=== PATIENT | female | born 2005 | race Caucasian/White ===

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

== ENCOUNTER 2024-11-16 10:22 | Outpatient (CLI) | payer OTHER, SELFPAY ==
--- NOTE | 2024-11-16 10:26 | US_ITS ---
PROCEDURE: US TRANSVAGINAL CLINICAL INDICATION: iud placement COMPARISON: No exams were available for comparison FINDINGS: Transvaginal sonographic images of the pelvis were obtained. UTERUS: 8.3cm x 6.4cmx 3.4cm anteverted with a combined endometrial thickness of 3.5mm. There is an IUD which appears to be in the correct position within the uterine cavity. LEFT OVARY: 3.5cmx2.8 cmx2.5cm with a volume of 12.6ml. There are multiple small follicles. RIGHT OVARY: 3.1cmx 2.1cmx2.2cm with a volume of 7.3ml. There are multiple small follicles. Both ovaries are seen and appear normal. Doppler flow to both ovaries are seen. There is trace fluid in the cul-de-sac. IMPRESSION: 1. Anteverted uterus normal in shape and size. The endometrium is thin. 2. There is an IUD within the uterine cavity in the correct position. 3. Both ovaries are seen and appear normal. They have multiple small follicles. 4. There is trace fluid in the cul-de-sac Dictated by: Joshua Salazar MD 11/16/2024 11:29 Joshua Salazar MD in [facility] 11/16/2024 11:29
== END 2024-11-16 23:59 | disposition home or self-care (01) ==
LOC: RAD 10:22
PROVIDERS: PCP Specialist; Visit Provider Obstetrics & Gynecology
DX: Z30.430 Encounter for insertion of intrauterine contraceptive device (principal)
CPT/HCPCS: 76830

== ENCOUNTER 2025-08-16 14:10 | Outpatient (CLI) | payer OTHER, SELFPAY ==
--- OUTSIDE RECORDS SUMMARY | 2025-08-18 08:53 | XMS_ITS | Data Portability ---
Author Organization [facility] Address [address] [place] [id number] Assessment No assessment recorded. Plan of Treatment Reminders Order Date Submit Date Provider Last Modified By Organization Details Last Modified Time Details Appointments None recorded. Lab pharmacoge nomic panel, blood or tissue 2023 024 [id number] [facility] [address] [place] [address], [id number], 5 16:29:14 pharmacoge nomic panel, blood or tissue 2023 024 [id number] [facility] [address] [place] [address], [id number], 5 16:29:14 Referral None recorded. Procedures None recorded. Surgeries None recorded. Imaging None recorded. Medication Orders escitalopr am 10 mg tablet 2024 025 HERMILO Jorge, [address] [place] [address] [place], [id number], 5 15:39:48 escitalopr am 10 mg tablet 2024 025 HERMILO Jorge, [address] [place] [address] [place], [id number], 5 16:16:12 prednisone 20 mg tablet 2023 025 [facility] [address] [place] [address] [place], [place], [id number], 5 14:31:19 Augmentin 875 mg-125 mg tablet 2023 025 ATHENAFAX [facility], [address] [place] [address] [place], [id number], 5 14:25:21 propranolo l 10 mg tablet 2023 025 [facility], [address] [place] [address] [place], [place], [id number], 5 09:29:01 escitalopr am 5 mg tablet 2023 025 [facility], [address] [place] [address] [place], [id number], 5 19:41:30 Augmentin 875 mg-125 mg tablet 2023 024 [email or web address] [facility], [address] [place] [address] [place], [id number], 14:21:24 Patient TargetsNo targets recorded. Patient Instructions Encounter Date Encounter Id Patient Instructions Last Modified By Organization Details Last Modified Time 09/01/2024 [id number] learning about healthy weight Not available 09/01/2024 13:14:46 body mass index: care instructions Not available 09/01/2024 13:14:46 10/21/2024 [id number] Take medication as prescribed. Will treat appropriately after lab work and/or other test results obtained. Contact the office if symptoms persist/worsen or other concerns arise. Follow up in one month to discuss medication effectiveness or sooner if needed. [id number] Not available 10/21/2024 20:25:02 Patient identifi ed triggers for anxiety and impact of anxious thinking on functioning. Discussed strategies to regulate symptoms and need for compliance with treatment. [id number] Not available 10/21/2024 20:25:07 11/22/2024 [id number] Take medication as prescribed. Contact the office if symptoms persist/worsen or other concerns arise. Follow up in 3 months or sooner if needed. [id number] Not available 11/22/2024 19:32:41 Patient identifi ed triggers for anxiety and impact of anxious thinking on functioning. Discussed strategies to regulate symptoms and need for compliance with treatment. [id number] Not available 11/22/2024 19:32:26 03/16/2025 [id number] learning about healthy weight [id number] Not available 03/16/2025 09:06:57 body mass index: care instructions [email or web address] Not available 03/16/2025 09:06:57 Take medication as prescribed. Contact the office if symptoms persist/worsen or other concerns arise. Follow up at next wellness exam or sooner if needed. [id number] Not available 03/16/2025 23:18:55 Patient identifi ed triggers for anxiety and impact of anxious thinking on functioning. Discussed strategies to regulate symptoms and need for compliance with treatment. [id number] Not available 03/16/2025 23:18:46 Reason for Referral None Reported. Problems Name Problem SNOMED Code Status Onset Date Resolution Date Notes Provider Name and Address Organization Details Recorded Time Body mass index 25-29 - overweig [id number] Completed BMI: 27.9 starting wgt: 178 recommen ded wgt gain: 15-25 Wei Cooley RN [address], [address] , [facility] 3 10:43:07 Contrace ption care manageme nt Completed ocp Wei Cooley RN [address], [address] , [facility] 3 10:43:07 Antenata l screenin g Completed [x]Mat21 -4/ NEGATIVE ; Male [-]AFP-d eclined 04/11 [-]CF-de clined 04/11 Wei Cooley RN [address], [address] , [facility] 3 10:43:07 Active immuniza tion Completed [x]Covid -complet ed [ ]Tdap-de sires [x]Flu-d eclined Wei Cooley RN [address], [place], [address] , [place] - [facility] 3 10:43:07 Blood group O Rh(D) negative 082034805 Completed [first TM bleed 01/14 without Rhogam) (Neg AB screen 01/28) [ ]AB screen 28wks [ ]Rhogam 28wks Wei Cooley RN [address], [place], [address] , [place] - [facility] 3 10:43:07 Recreati onal drug user 996607438 Completed UDS+ THC at obhx [ ] Rpt 28wk Wei Cooley RN [address], [place], [address] , [place] - [facility] 3 10:43:07 First trimeste r bleeding [id number] 85209 Completed 3 1 3 ER visit hCG 5400., Single bleeding episode, 01/14 office visit follow-u p, bleeding had stopped, 5 wk IUP US: did NOT has type RH check NOR RHOGAM for this episode. (confirm ed per [facility] Blood bank) Antibody screen 3 2 8 negative (probabl y did not get RhoGAM) [ [ x] We will have Vish check with blood bank regardin g document ation or RhoGAM.s- -NOT GIVEN [ } Need to confirm negative antibody screen at 28 weeks and educate patient regardin g need for RhoGAM with any future bleeding Wei Cooley RN [address], [place], [address] , [place] - [facility] 3 10:43:07 Environm ental allergy 974530305 Active 2020 Shanell Eddy APRN [address], [place], [address] , [place] - [facility] 3 13:26:21 Childhoo d obesity 534340347 Completed 202001/28/2023 Shanell Eddy APRN [address], [place], [address] , [place] - [facility] 3 13:26:05 Dysmenor candelaria 316882271 Completed 202009/01/2024 Wei Cooley RN [address], [place], [address] , [place] [facility] 4 09:31:37 Abnormal uterine bleeding 77847797223 100 Completed 202001/28/2023 Shanell Eddy APRN [address], [place], [address] , [place] [facility] 3 13:25:55 Constipa tion 94267696 Completed 202009/01/2024 Wei Cooley RN [address], [place], [address] , [place] [facility] 4 09:31:30 Anxiety 97614339 Active 2020 Shanell Eddy APRN [address], [place], [address] , [place] [facility] 3 13:26:01 Irritabl e bowel syndrome characte rized by constipa tion 825055017 Active 2020 Shanell Eddy APRN [address], [place], [address] , [place] [facility] 3 13:26:33 Gastroes ophageal reflux disease without esophagi tis 233916894 Active 2020 Shanell Eddy APRN [address], [place], [address] , [place] [facility] 3 13:26:27 Asthma 439568481 Active 2020 Shanell Eddy APRN [address], [place], [address] , [place] [facility] 3 13:25:59 Pregnanc y 09818634 Completed 202207/04/2023 Wei Cooley RN [address], [place], [address] , [place] [facility] 3 10:43:11 History of recreati onal drug use 476791571 Completed 2022 quit w/+ home upt Wei Cooley RN [address], [place], [address] , [place] [facility] 3 10:43:07 History of recreati onal drug use 778209881 Active 2022 quit w/+ home upt Wei Cooley RN [address], [place], [address] , [place] [facility] 4 09:31:22 External hemorrho ids without complica tion 40652924 Completed 202209/01/2024 Wei Cooley RN [address], [place], [address] , [place] [facility] 4 09:31:16 Obesity 303199378 Active 2023 Wei Cooley RN [address], [place], [address] , [place] [facility] 4 09:31:09 Major depressi ve disorder 175540912 Active 2023 Romina Saez APRN [address], [place], [address] , [place] - [facility] 4 20:24:39 Generali zed anxiety disorder 33876303 Active 2023 Romina Saez APRN [address], [place], [address] , [place] [facility] 4 20:24:40 Problem Notes None recorded. Procedures Surgical History Date Name Laterality Status Provider Name and Address Organization Details Recorded Time 07/30/20 24 Suture/Staple removal completed Romina Saez APRN [address], [place], [address], [place] - [facility] 07/30/2024 15:22:34 07/30/20 24 Medication Reconcilliation completed Natasha Frost [place] - [facility] 07/30/2024 10:38:19 06/10/20 23 OB Ultrasound Summary completed Bereket Robert [place] - [facility] 06/10/2023 10:07:48 04/11/20 23 OB Ultrasound Summary completed Bereket Robert [place] [facility] 04/11/2023 11:40:07 01/29/20 23 OB Ultrasound Summary completed Melly Saez [place] [facility] 01/28/2023 12:42:46 01/15/20 23 OB Ultrasound Summary completed Melly Saez [place] [facility] 01/14/2023 13:55:28 10/23/20 22 Nexplanon Insertion cancelled Lea Ralph [place] [facility] 10/15/2022 15:02:00 09/23/20 22 surgical removal of third molar tooth completed Lea Ralph [place] [facility] 10/10/2022 15:30:50 Remove tonsils and adenoids completed Maryjane Audrey [place] - [facility] 12/26/2021 15:46:50 Imaging Results None recorded. Procedure Notes None recorded. Medical Equipment None Reported. Allergies No known drug allergies Medications Name Sig Start Date Stop Date Status Note LastModified by Organization Details LastModified Time amoxicillin 500 mg capsule TAKE ONE CAPSULE BY MOUTH THREE TIMES DAILY FOR 5 DAYS 10/10 completed Not Available Not Available Not Available albuterol sulfate 2.5 mg/3 mL (0.083 %) solution for nebulizatio n Inhale 3 mL every 4-6 hours by nebulizat ion route as needed. 12/26 completed Not Available Not Available Not Available polyethylen e glycol 3350 17 gram oral powder packet take ONE PACKET DIRECTED TWICE DAILY 04/11 completed Not Available Not Available Not Available cetirizine 10 mg tablet 12/26 completed Not Available Not Available Not Available azithromyci n 250 mg tablet TAKE 2 TABLETS BY MOUTH ON DAY 1, THEN TAKE 1 TABLET DAILY ON DAYS 2-5 09/01 completed Not Available Not Available Not Available ibuprofen 800 mg tablet TAKE ONE TABLET BY MOUTH EVERY 8 HOURS NEEDED FOR PAIN --TAKE WITH FOOD-- 11/19 completed Not Available Not Available Not Available fluconazole 150 mg tablet TAKE ONE TABLET BY MOUTH ONCE FOR one DOSE 11/19 completed Not Available Not Available Not Available hydrocodone 5 mg-acetamin ophen 325 mg tablet TAKE ONE TABLET BY MOUTH EVERY 6 HOURS NEEDED FOR PAIN 09/01 completed Not Available Not Available Not Available ondansetron HCl 4 mg tablet TAKE ONE TABLET BY MOUTH EVERY 6 HOURS NEEDED FOR FOR NAUSEA AND VOMITING 04/11 completed Not Available Not Available Not Available prednisone 20 mg tablet Take 2 tablets twice a day by oral route as directed for 5 days. 11/22 completed Not Available Not Available Not Available sumatriptan 50 mg tablet take 1 PO at the start of headache and then may repeat in one hour if still with headache. No more than 2 pills in 24 hours 01/23 completed Not Available Not Available Not Available metronidazo le 500 mg tablet tAKE FOUR TABLETS BY MOUTH ONCE 11/19 completed Not Available Not Available Not Available sulfamethox azole 800 mg-trimetho prim 160 mg tablet TAKE ONE TABLET BY MOUTH EVERY TWELVE HOURS FOR 10 DAYS 03/16 completed Not Available Not Available Not Available triamcinolo ne acetonide 0.1 % topical cream APPLY A THIN LAYER TO THE AFFECTED AREA(S) BY TOPICAL ROUTE 2 TIMES PER DAY 10/09 completed Not Available Not Available Not Available amoxicillin 500 mg tablet Take ONE tablet by MOUTH every EIGHT hours FOR 10 DAYS 12/26 completed Not Available Not Available Not Available Miconazole- 7 2 % vaginal cream INSERT ONE APPLICATO RFUL EVERY DAY VAGINALLY 05/12 completed Not Available Not Available Not Available oxycodone-a cetaminophe n 5 mg-325 mg tablet TAKE ONE TABLET BY MOUTH EVERY 6 HOURS NEEDED 10/10 completed Not Available Not Available Not Available propranolol 10 mg tablet Take 1 tablet twice a day by oral route as needed for 30 days. 03/16 completed Not Available Not Available Not Available amitriptyli ne 25 mg tablet take 1/2 tablet BY MOUTH EVERY DAY 07/12 completed Not Available Not Available Not Available hydrocortis one 1 % topical cream APPLY A THIN LAYER TO THE AFFECTED AREA(S) BY TOPICAL ROUTE 2 TIMES PER DAY 03/21 completed Not Available Not Available Not Available cephalexin 500 mg capsule TAKE ONE CAPSULE BY MOUTH EVERY 8 HOURS FOR 3 DAYS 09/01 completed Not Available Not Available Not Available clotrimazol e-betametha sone 1 %-0.05 % topical cream APPLY TO THE AFFECTED AREA(S) TWICE DAILY in THE morning AND evening FOR TWO WEEKS 11/19 completed Not Available Not Available Not Available docusate sodium 100 mg capsule TAKE ONE CAPSULE BY MOUTH EVERY DAY 10/09 completed Not Available Not Available Not Available omeprazole 20 mg capsule,del ayed release TAKE ONE CAPSULE BY MOUTH EVERY DAY 05/17 completed Not Available Not Available Not Available montelukast 10 mg tablet Take 1 tablet by mouth each evening 05/17 completed Not Available Not Available Not Available methylpredn isolone 4 mg tablets in a dose pack take as directed ON package 10/10 completed Not Available Not Available Not Available albuterol sulfate HFA 90 mcg/actuati on aerosol inhaler INHALE BY MOUTH FOUR TIMES DAILY NEEDED FOR SHORTNESS OF BREATHE OR WHEEZING 11/19 completed Not Available Not Available Not Available fluticasone propionate 50 mcg/actuati on nasal spray,suspe nsion 12/26 completed Not Available Not Available Not Available amoxicillin 875 mg-potassiu m clavulanate 125 mg tablet Take 1 tablet every 12 hours by oral route as directed for 10 days. 11/22 completed Not Available Not Available Not Available escitalopra m 10 mg tablet Take 1 tablet every day by oral route as directed for 30 days. 2024 active Not Available Not Available Not Avai lable escitalopra m 5 mg tablet Take 1 tablet every day by oral route as directed for 30 days. 11/22 completed Not Available Not Available Not Available nitrofurant oin monohydrate /macrocryst als 100 mg capsule TAKE ONE CAPSULE BY MOUTH TWICE DAILY with food FOR SEVEN DAYS 11/19 completed Not Available Not Available Not Available duloxetine 30 mg capsule,del ayed release TAKE ONE CAPSULE BY MOUTH EVERY DAY 05/17 completed Not Available Not Available Not Available Flovent HFA 110 mcg/actuati on aerosol inhaler INhale TWO puffs TWICE DAILY. USE regularly , RINSE MOUTH AFTER each USE. 12/26 completed Not Available Not Available Not Available Lo Loestrin Fe 06/08 completed Not Available Not Available Not Available Nexplanon 68 mg subdermal implant Inject 1 implant by subcutane ous route. 01/14 completed Not Available Not Available Not Available 28 mg iron-800 mcg tablet TAKE ONE TABLET BY MOUTH EVERY DAY 11/19 completed Not Available Not Available Not Available Larissia 0.1 mg-20 mcg tablet TAKE ONE TABLET BY MOUTH EVERY DAY 10/10 completed Not Available Not Available Not Available Qvar RediHaler 80 mcg/actuati on HFA breath activated aerosol 07/12 completed Not Available Not Available Not Available Flucelvax Quad (PF) 60 mcg (15 mcg x 4)/0.5 mL IM syringe inject 0.5 millilite rs intramusc ularly 07/18 completed Not Available Not Available Not Available Afluria Qd (36 mos up)(PF)60 mcg (15 mcg x4)/0.5 mL IM syringe ADM 0.5ML IM UTD 07/12 completed Not Available Not Available Not Available Paxlovid 300 mg (150 mg x 2)-100 mg tablets in a dose pack TAKE DIRECTED ON package 11/19 completed Not Available Not Available Not Available Vitals Date Recorded Body height Body mass index (BMI) Body mass index (BMI) [Percentile] Per age and sex Body weight Body temperature Heart rate Oxygen saturation Oxygen saturation in Arterial blood by Pulse oximetry Respiratory rate Provider Name and Address Organization Details Last Updated DateTime 5 170.18 cm 34.8 kg/m2 97 % 833022. 61 g 98 [degF] 86 /min 99 % 99 % 18 /min Romina Barrios [place] - [facility] 5 14:21:13 Date Recorded Body height Body mass index (BMI) [Percentile] Per age and sex Body mass index (BMI) Body weight Body temperature Heart rate Respiratory rate Provider Name and Address Organization Details Last Updated DateTime 5 170.18 cm 96 % 33.9 kg/m2 76593.3 5 g 97 [degF] 76 /min 18 /min Alexia Paul [place] - [facility] 5 08:52:14 Date Recorded Body height Body mass index (BMI) [Percentile] Per age and sex Body mass index (BMI) Body weight Provider Name and Address Organization Details Last Updated DateTime 09/01/2024 170.18 cm 96 % 34.3 kg/m2 11414.65 g Maryjane Lowe [place] [facility] 09/01/2024 13:11:20 Date Recorded Body height Body mass index (BMI) [Percentile] Per age and sex Body mass index (BMI) Body weight Body temperature Oxygen saturation Oxygen saturation in Arterial blood by Pulse oximetry Provider Name and Address Organization Details Last Updated DateTime 4 170.18 cm 96 % 34 kg/m2 21902.6 4 g 98 [degF] 99 % 99 % Romina Barrios [place] - [facility] 4 13:54:42 Date Recorded Body height Body mass index (BMI) Body mass index (BMI) [Percentile] Per age and sex Body weight Pain severity [place]-Goddard FACES pain rating scale Body temperature Heart rate Respiratory rate Oxygen saturation Oxygen saturation in Arterial blood by Pulse oximetry Provider Name and Address Organization Details Last Updated DateTime 4 170.18 cm 34.1 kg/m2 96 % 39181.1 4 g 1 98.7 [degF] 98 /min 18 /min 98 % 98 % Conrad Marrero [place] - [facility] 4 15:02:11 Social History Question Answer Notes LastModified by Organizat ion Details LastModified Time Tobacco Smoking Status Never Smoker Conrad medrano [place] - [facility] 07/06/2020 18:19:42 Do You Have An Advance Directive? No Information n ot available 01/28/2023 Do You Wear A Helmet When Biking? No Information not available 05/31/2022 Are You Blind Or Do You Have Difficulty Seeing? No Information n ot available 01/28/2023 Is Blood Transfusion Acceptable In An Emergency? Yes Information not available 01/28/2023 What Is Your Level Of Caffeine Consumption? Moderate Information not available 05/31/2022 In The 14 Days Before Symptom Onset, Have You Had Close Contact With A Laboratory-confirm ed COVID-19 While That Case Was Ill? No Information n ot available 01/28/2023 In The 14 Days Before Symptom Onset, Have You Had Close Contact With A Person Who Is Under Investigation For COVID-19 While That Person Was Ill? No Information not available 05/31/2022 Have You Been To An Area Known To Be High Risk For COVID-19? No Information not available 05/31/2022 Are You Deaf Or Do You Have Serious Difficulty Hearing? No Information not available 01/28/2023 What Type Of Diet Are You Following? REGULAR Information n ot available 05/31/2022 Have You Processed Blood Or Body Fluids From An Ebola Virus Disease Patient Without Appropriate PPE? No Information not available 05/31/2022 Do You Reside In Or Have You Traveled To An Area Where Ebola Virus Transmission Is Active? No Information not available 05/31/2022 What Is The Highest Grade Or Level Of School You Have Completed Or The Highest Degree You Have Received? [id number] Information not available 05/31/2022 Have There Been Any Changes To Your Family Or Social Situation? No Information no t available 12/26/2021 Have You Recently Or Are You Planning To Travel To An Area With Zika Virus? No Information not available 05/31/2022 What Is Your Home Situation? Both Parents Information not available 05/31/2022 Do You Have A Medical Power Of Cigar Making Supervisor? No Information not available 01/28/2023 What Was The Date Of Your Most Recent Tobacco Screening? 03/16/2025 [email or web address] Information not available 03/16/2025 How Many Children Do You Have? 0 Information not available 12/26/2021 What Is Your Parents' Marital Status? [email or web address] Information not available 07/06/2020 Do You Use Protection During Sex? No Information not available 05/31/2022 Do You Use Protection Against STDs? No Information not available 05/31/2022 What Is Your Relationship Status? Domestic Partner Information not available 01/28/2023 What Is The Name Of Your School? [employer] Information not available 05/31/2022 Do You Use Your Seat Belt Or Car Seat Routinely? Yes [email or web address] Information not available 07/06/2020 Are You Sexually Active? No Information not available 05/31/2022 Do You Have Any Siblings? 1 Information not available 05/31/2022 Do You Have Smoke And Carbon Monoxide Detectors In Your Home? Yes Information not available 07/06/2020 Are You Passively Exposed To Smoke? No [email or web address] Information no t available 07/06/2020 Has Tobacco Cessation Counseling Been Provided? No Information not available 10/10/2022 Do You Have Difficulty Walking Or Climbing Stairs? No Information not available 01/28/2023 Are You Currently In School? No [email or web address] Information not available 10/10/2022 Was Contraceptive Counseling Provided? No Information not available 01/28/2023 What Contraceptive Method Was Reported At Start Of This Visit? None [email or web address] Information not available 10/10/2022 Do You Want To Talk About Contraception Or Prevention During Your Visit Today? Yes Information no t available 10/10/2022 How Many Years Have You Used E-cigarettes Or Vape? 1 Information not available 05/31/2022 Sex: Female Functional Status Question Answer Note LastModified by Organizat ion Details LastModified Time Do you or have you ever used smokeless tobacco? Never used smokeless tobacco Information not available 05/31/2022 Are you currently employed? Yes [email or web address] Information not available 10/10/2022 Do you have transportation difficulties? No Information not available 01/28/2023 Are you able to care for yourself independently? Yes [email or web address] Information not available 10/10/2022 Do you have difficulty dressing, bathing, grooming, or toileting? No Information not available 01/28/2023 Do you or have you ever used e-cigarettes or vape? Former user of electronic cigarettes vape Information not available 01/28/2023 What is your exercise level? None Information not available 12/26/2021 Do you use any illicit or recreational drugs? No Information not available 12/26/2021 Do you or have you ever used any other forms of tobacco or nicotine? No [email or web address] Information not available 10/10/2022 What is your level of alcohol consumption? None Information not available 12/26/2021 What is your status? Information no t available 01/28/2023 Are you able to walk independently without assistance or assistive devices? [email or web address] Information not available 01/28/2023 Do you have difficulty doing errands alone? No Information not available 01/28/2023 What is your occupation? [employer] Information not available 10/10/2022 Mental Status Question Answer Note LastModified by Organizat ion Details LastModified Time Do you feel stressed (tense, restless, nervous, or anxious, or unable to sleep at night)? [id number] Information not available 05/31/2022 Do you have difficulty concentrating, remembering or making decisions? No Information no t available 01/28/2023 Family History Relationship Description Onset Age of this Age Resolved Age Notes LastModified by Organization Details LastModified Time Mother History of hypertension [email or web address] Not available 14:36:57 Mother Depressive disorder [email or web address] Not available 2021 14:36:57 Mother Arthritis [email or web address] Not availabl e 05/31/2022 14:36:57 Mother Migraine [email or web address] Not available 05/31/2022 14:36:57 Father Anxiety disorder [email or web address] Not available 2019 18:19:20 Father Hypertensive disorder [email or web address] Not available 2021 14:36:57 Maternal Grandmother Myocardial infarction [email or web address] Not available 05/31 14:36:57 Maternal Grandmother Parkinson's disease [email or web address] Not available 2021 14:36:57 Paternal Grandmother Myocardial infarction [email or web address] Not available 05/31 14:36:57 Paternal Grandmother Diabetes mellitus [email or web address] Not available 2021 14:36:57 Medical History Condition Response Pancreatitis N Other N Atrial Fibrillation N congenital heart disease N Blood Diseases N Hyperthyroidism N Blood Transfusion N Rheumatoid arthritis N Erectile Dysfunction N amputation N Skin Lesions N Depression Y Pneumonia N Incontinence N Murmur N Edema N Alzheimer's Disease N Migraine Headaches Y Tobacco Abuse N Anxiety Disorder Y Muscle, Joint, or Bone Problems N Hemorrhoids N Obesity N Vision or Eye Problems N Restless Leg Syndrome N Arthritis N Polyps N Infertility N Carpal Tunnel N Acid Reflux (GERD) Y Cancer N Varicosities N Stroke N Tendonitis N Crohn's Disease N Hypercholesterolemia N Skin Cancer N Headaches Y Fibromyalgia N Irritable Bowel Syndrome N Anal Fissure N Kidney Disease N Heart Problems N Ear or Hearing Problems N Hospitalizations N Gallstones N Kidney or Bladder Problems N Goiter N Acne N Skin Problems N Eating Disorder N Rosales's Esophagus N Hypertriglyceridemia N MRSA exposure N Constipation N Embolism N Vitamin B12 Deficiency N Deviated Septum N Myocardial Infarction N Asthma Y Mitral Valve Disorders N Vertigo N Hepatitis N Thyroid Cancer N Neuropathy N History of DVT N Herniated Disc N Chronic Ear Infections N Chicken Pox N Autism Spectrum Disorder (ASD) N Von Willebrands Disease N Thrombophilias N Breast Cancer N Hernia N Plantar Fasciitis N Hospital Admission Other Than N Lung Disease N Hypothyroidism N Developmental or Behavioral Disorders N Defects or Inherited Disease N Breast Problem N Difficulty Swallowing N Ovarian Cyst N Anesthesia Complications N Testosterone Deficiency N Head Injury/Concussion N Interstitial Cystitis N Congenital Anomalies N Hypoglycemia N Blood clot N Vitamin D Deficiency N Cellulitis N Endometriosis N Fracture N Bladder or Kidney Problems N Colorectal Cancer N Schizophrenia N Panic Disorder N Concussion N Spina Bifida N Allergies/Hayfever Y Osteoarthritis N Parkinson's Disease N Disc Protrusion N STI N Esophagitis N Angina N Thyroid Problems N GI Problems N ADD/ADHD N Anemia N Multiple Sclerosis N Abnormal PAP N Lumbago N Mental Illness N Psychiatric Illness N Ovarian Cancer N Diabetes N Bedwetting N Degenerative Disc Disease N Seizures/Epilepsy N Syncope N Insomnia N Hyperlipidemia N Eczema N Dementia N Attention Deficient Disorder N Abuse/Domestic Violence N Ulcerative colitis N Cerebrovascular Disease N Depression N Guillain-Dodson N Sleep Apnea N Aneurysm N Heart Disease N Bronchitis N Suicidal Ideation N Pre-Eclampsia N Hypertension N Osteoporosis N Gynecological History Statement/Question Response Flow Moderate Date of LMP 10/11/2024 On BCP's at Conception? N STIs/STDs N HPV Vaccine Y Duration of Flow (days) 7 Current Control Method Age at Menarche 10 Last Annual Exam/Provider 12/26/21 KRA Frequency of Cycle (Q days) 28 Sexually Active? N Date of Last Cervical Culture 02/20/2023 Menses Monthly Y Sexual Problems? N LMP Approximate Obstetrics History GPAL:G 1 P 0 0 0 0 Immunizations Vaccine Type Date Status Note Provider Mark burciaga and Address Organization Details Recorded Time meningococcal MCV4P 020 completed Natasha Frost null, [place] - [facility] 07/19/2020 14:07:22 meningococcal B, OMV 020 completed Natasha [place] - [facility] 07/19/2020 14:07:22 meningococcal B, OMV 020 completed Natasha Frost [place] - [facility] 08/23/2020 14:55:15 Influenza, split virus, quadrivalent, preservative 023 cancelled patient objection Shanell Eddy, [employer] [address], [place], [address], [place] [facility] 01/28/2023 13:54:09 Hep B, adolescent or pediatric 004 completed Maryjane [place] null, [place] - [facility] 08/14/2020 14:24:12 IPV 004 completed Maryjane [place] - [facility] 08/14/2020 14:24:52 IPV 004 completed Maryjane [place] [facility] 08/14/2020 14:24:57 IPV 004 completed Not Available [facility] 11/19/2023 10:53:20 IPV 008 completed Maryjane [place] [facility] 08/14/2020 14:25:07 MMR 005 completed Maryj[place] [facility] 08/14/2020 14:25:47 MMR 008 completed Maryj[place] [facility] 08/14/2020 14:25:56 varicella 005 completed Maryj[place] [facility] 08/14/2020 14:26:11 varicella 015 completed Maryj[place] [facility] 08/14/2020 14:26:15 Hep A, ped/adol, 2 dose 017 completed Bailee Indu [place] [facility] 04/11/2023 11:47:50 Hep A, ped/adol, 2 dose 018 completed Bailee Indu [place] - [facility] 04/11/2023 11:47:50 meningococcal ACWY, unspecified formulation 015 completed Not Available [facility] 11/19/2023 10:53:20 Tdap 015 completed Maryjane [place] [facility] 08/14/2020 14:27:21 Influenza, split virus, quadrivalent, preservative 017 completed Bailee Indu [place] - [facility] 04/11/2023 11:47:47 HPV9 016 completed Bailee Indu [place] [facility] 04/11/2023 11:47:48 HPV9 015 completed Bailee Indu [place] - [facility] 04/11/2023 11:47:48 HPV9 015 completed Bailee Indu null, - [facility] 04/11/2023 11:47:48 COVID-19, mRNA, LNP-S, PF, 30 mcg/0.3 mL dose 021 completed Bailee Indu null, - [facility] 04/11/2023 11:47:48 COVID-19, mRNA, LNP-S, PF, 30 mcg/0.3 mL dose 021 completed Bailee Indu null, - [facility] 04/11/2023 11:47:48 Pneumococcal conjugate PCV 13 017 completed Bailee Indu null, - [facility] 04/11/2023 11:47:49 Influenza, split virus, trivalent, preservative 016 completed Bailee Indu null, - [facility] 04/11/2023 11:47:49 Influenza, split virus, trivalent, PF 015 completed Bailee Indu null, - [facility] 04/11/2023 11:47:49 HPV, quadrivalent 015 completed Bailee Indu null, - [facility] 04/11/2023 11:47:49 HPV, quadrivalent 015 completed Bailee Indu null, - [facility] 04/11/2023 11:47:49 Hep B, adolescent or pediatric 004 completed Bailee Indu null, - [facility] 04/11/2023 11:47:49 Hib (PRP-OMP) 005 completed Bailee Indu null, - [facility] 04/11/2023 11:47:50 Hib (PRP-OMP) 004 completed Bailee Indu null, - [facility] 04/11/2023 11:47:50 meningococcal MCV4P 015 completed Bailee Indu null, - [facility] 04/11/2023 11:47:50 meningococcal MCV4P 020 completed Bailee Indu [place] - [facility] 04/11/2023 11:47:50 DTaP, unspecified formulation 008 completed Ba[place] [facility] 04/11/2023 11:47:50 DTaP, unspecified formulation 005 completed Bailee [place] [facility] 04/11/2023 11:47:50 DTaP, unspecified formulation 004 completed Bailee [place] [facility] 04/11/2023 11:47:50 meningococcal MCV4, unspecified formulation 015 completed Bailee [place] [facility] 04/11/2023 11:47:50 DTaP-Hep B-IPV 004 completed Bailee [place] [facility] 04/11/2023 11:47:50 Influenza, split virus, quadrivalent, PF 020 completed Bailee Indu [place] [facility] 04/11/2023 11:47:50 Past Encounters Encounter ID Performer Location Encounter Start Date Encounter Closed Date Diagnosis/Indication Diagnosis SNOMED-CT Code Diagnosis ICD10 Code Diagnosis IMO Codes Diagnosis Note [id number] Terell Lau MD [address] [place] [address] 07/06/2020 17:58:12 07/06/2020 18:40:12 Migraine 70172154 G43.358 [id number] MD Snehal [place] [address] [place] [address] 07/18/2020 13:47:05 07/18/2020 14:20:18 Migraine 12381713 G43.607 [id number] Shiv Spann MD [facility] [address] [place] [address] 07/19/2020 13:44:28 07/19/2020 14:14:45 Well child visit 748587306 Z00.129 Active or passive immunization 208626078 Z23 Normal bod y mass index 44191735 Z68.52 Dietary ma nagement surveillance 356485320 Z71.3 Exercises education, guidance, and counseling 156698642 Z71.82 Depression screening 171 314048 Z13.89 On examina tion - general eye examination 803727766 Z01.00 [id number] MD Snehal [place] [address] [place] [address] 07/26/2020 18:14:46 07/26/2020 18:25:31 Migraine 80500740 G43.909 mri normal. [id number] MD Mirtha Ramirez [address] [place] [address] 08/23/2020 14:46:37 08/23/2020 15:23:45 Immunization due 268328798 Z28.3 [id number] Terell Lau MD [address] [place] [address] 11/07/2020 16:23:40 11/07/2020 16:54:47 Pharyngitis 266022160 J02.9 Costal chondritis 573226 04 M94.0 [id number] Terell Lau MD [facility] [address] [place] [address] 01/23/2021 14:23:49 01/23/2021 15:26:11 Pharyngitis 027494407 J02.9 Acute asthma 875717475 J 45.901 Contusion of left elbow 1934847693 4377058 S50.02XA [id number] MD Snehal [place] [address] [place] [address] 03/20/2021 14:40:03 03/20/2021 15:24:13 Abdominal pain 41988627 R10.9 Dysmenorrhea 596433946 N 94.6 Childhood obesity 866393 003 E66.8 [id number] MD Snehal [place] [address] [place] [address] 03/28/2021 09:52:55 03/28/2021 10:40:15 Dizziness 400306966 R42 Gastroesop hageal reflux disease without esophagitis 514498306 K21.9 [id number] MD Snehal [place] [employer] [address] [place] [address] [place] [address] 04/03/2021 14:27:32 04/03/2021 15:42:58 Pain in pelvis 91317305 R10.2 Abnormal u terine bleeding 5811533120 9100 N93.9 Constipation 17516019 K5 9.00 [id number] MD Mirtha [place] [employer] [address] [place] [address] [place] [address] 04/18/2021 13:19:06 04/18/2021 14:38:39 Pain in pelvis 33691110 R10.2 Abnormal u terine bleeding 3804479027 9100 N93.9 Dysuria 05991718 R30.9 Body mass index 30+ - obesity 913175781 Z68.38 [id number] MD Snehal Pina[address] [place] [address] 05/01/2021 11:09:00 05/01/2021 11:41:41 Anxiety 46745553 F41.9 will treat after genetic testing done. Does not want to go back on old meds. Irritable bowel syndrome characterized by constipation 583264861 K58.1 [id number] MD Snehal Pina[address] [place] [address] 06/08/2021 13:18:43 06/08/2021 13:38:33 Anxiety 54083310 F41.9 [id number] MD Mirtha [place] [employer] [address] [place] [address] [place] [address] 06/20/2021 14:58:30 06/20/2021 15:49:26 Venereal disease screening 552100237 Z11.3 Abnormal u terine bleeding 8858609794 9100 N93.9 Pain in pelvis 47839551 R10.2 [id number] GREGORY [place] [address] [place] [address] 07/12/2021 10:42:12 07/12/2021 12:22:15 Gastroesophageal reflux disease without esophagitis 727270134 K21.9 Anxiety 97709248 F41.9 Viral syndrome 093489547 B34.9 History an d physical examination, school 36831290 Z02.0 cleared for school participat ion without restrictio ns. Asthma 014167504 J45.90 9 Eczema 69845813 L30.9 Acute asthma 308862409 J 45.901 Well child visit 1036527 09 Z00.090 [id number] Terell Lau MD [facility] [address] [place] [address] 10/09/2021 17:46:43 10/09/2021 18:27:37 Elevated blood-pressure reading without diagnosis of hypertension 201596465 R03.0 Dizziness 587681355 R42 [id number] Terell Lau MD [address] [place] [address] 10/23/2021 11:08:05 10/23/2021 11:33:47 Gastroesophageal reflux disease without esophagitis 286979195 K21.9 Asthma 571788508 J45.90 9 Acute bron chitis with bronchospasm 14292025 J20.9 Viral syndrome 788340549 B34.9 [id number] MD Mirtha [place] [employer] [address] [place] [address] [place] [address] 12/26/2021 15:31:20 12/26/2021 16:02:27 Routine gynecologic examination done 4935975449 9101 Z01.419 Depression screening 171 939803 Z13.89 Examinatio n of blood pressure 443805493 Z01.30 Venereal d isease screening 997667349 Z11.3 Abnormal u terine bleeding 6160208268 9100 N93.9 Body mass index 30+ - obesity 678681240 Z68.38 Contracept ion care management 861008639 Z30.9 [id number] MD Mirtha [place] [employer] [address] [place] [address] [place] [address] 05/17/2022 16:15:39 05/17/2022 17:03:35 Leukocytes in urine 364125290 R82.79 Vaginal discharge 685195 006 N89.8 Vaginal irritation 20403 6004 N89.8 [id number] Romina Saez APRN [address] [place] [address] 05/31/2022 13:45:34 05/31/2022 15:20:59 Pharyngitis 948012326 J02.9 Fever 657279882 R50.9 [id number] MD Snehal [place] [address] [place] [address] 06/03/2022 14:04:57 06/03/2022 14:40:46 Exposure to SARS-CoV-2 433360443 Z20.822 COVID-19 190327214 U07.1 [id number] GREGORY [place] [employer] [address] [place] [address] [place] [address] 10/10/2022 15:21:04 10/10/2022 15:55:41 Contraception care education 757448206 Z30.09 [id number] Charissa Chavez DO [facility] [address] [place] [address] [place] [address] 01/14/2023 13:33:47 01/14/2023 14:54:54 Vaginal bleeding complicating early 139793045 O20.9 Routine an tenatal care 719393375 Z34.90 Body mass index 25-29 - overweight 432790781 Z68.27 [id number] GREGORY [place] [employer] [address] [place] [address] [place] [address] 01/28/2023 12:08:31 01/28/2023 14:05:12 Routine care 994951669 Z34.01 Urine preg yusuf test positive 920539745 Z32.01 screening 2437 67830 Z36.9 Gestation period, 7 weeks 09976744 Z3A.01 Normal 3483684 2 Z34.90 Referral needed 40054553 9 Z76.89 History of recreational drug use 273319192 F19.21 stopped w/+ home upt Influenza vaccination declined 129026958 Z28.21 [id number] MARS WOODSON DO [facility] [employer] [address] [place] [address] [place] [address] 02/20/2023 09:23:32 02/20/2023 11:17:29 Routine care 542186856 Z34.01 screening 2437 69892 Z36.9 Normal 9923618 2 Z34.90 History of recreational drug use 774492089 F19.21 stopped w/+ home upt Gestation period, 10 weeks 35738976 Z3A.10 Infection screening 2437 60551 Z11.3 Z11.8 Constipation 83377808 K5 9.00 External h emorrhoids without complication 04645098 K64.4 [id number] Ivy Crook, MS, RDN, LDN [facility] [employer] [address] [place] [address] [place] [address] 02/20/2023 09:22:45 02/20/2023 11:36:38 Teenage 717203941 O09.802 [id number] Charissa Chavez [facility] [employer] [address] [place] [address] [place] [id number] 03/21/2023 09:47:29 03/21/2023 10:19:20 Routine care 067223080 Z34.02 Gestation period, 14 weeks 47290814 Z3A.14 Normal 6325340 2 Z34.90 History of recreational drug use 775716319 F19.21 stopped w/+ home upt [id number] Elidia Davison MD [facility] [employer] [address] [place] [address] [place] [address] 04/11/2023 10:48:45 04/11/2023 12:27:39 Routine care 460341824 Z34.02 screening 2437 30333 Z36.9 Gestation period, 17 weeks 95477082 Z3A.17 Vaginal irritation 11150 6004 N89.8 Irritation including dysuria and reported odor. Await NuSwab/cul tures before treatment. If negative on cultures can treat empiricall y with antifungal Blood grou p O Rh(D) negative 685703030 Z67.41 Noted after visit that she had had a early self-limit ed first trimester bleeding episode with unrecogniz ed Rh- blood type and apparently did not get RhoGAM. Will need to carefully monitor 28-week antibody screen to confirm no isoimmuniz ation from that episode First trim ketan bleeding 8876235715 012679 O46.91 [id number] DO Mirtha [place] [employer] [address] [place] [address] [place] [address] 05/12/2023 09:50:19 05/12/2023 10:29:05 Routine care 673140000 Z34.02 Blood grou p O Rh(D) negative 686046083 Z67.41 Noted after visit that she had had a early self-limit ed first trimester bleeding episode with unrecogniz ed Rh- blood type and apparently did not get RhoGAM. Will need to carefully monitor 28-week antibody screen to confirm no isoimmuniz ation from that episode Gestation period, 21 weeks 61330215 Z3A.21 Normal 9921826 2 Z34.90 [id number] MD Mirtha [place] [employer] [address] [place] [address] [place] [address] 06/10/2023 09:29:25 06/10/2023 10:22:24 Routine care 642723879 Z34.02 Gestation period, 26 weeks 36041810 Z3A.26 Blood grou p O Rh(D) negative 768262775 Z67.41 antibody screen and RhoGAM next visit screening 2437 19071 Z36.9 Pruritic rash 95150936 L 28.2 Suspect fungal rash midsternum between breast [id number] GREGORY Wen [address] [place] [address] 11/19/2023 10:48:40 11/19/2023 11:30:36 Viral screening 994221070 Z11.59 Acute sinusitis 15248912 J01.90 [id number] GREGORY Wen [address] [place] [address] 07/30/2024 10:32:25 07/30/2024 10:45:37 Removal of suture 92627282 Z48.02 Laceration of left hand 9860733572 8007116 S61.412D [id number] Shiv Maria Ines, MD [facility] [place] [address] 09/01/2024 12:43:41 09/01/2024 13:28:06 Body mass index 30+ - obesity 707036511 Z68.34 Obesity 455075698 E66.9 Acute sinusitis 69280356 J01.90 [id number] GREGORY Wen [address] [place] [address] 10/21/2024 13:49:53 10/21/2024 14:46:40 Major depressive disorder 507452883 F32.9 Generalize d anxiety disorder 58691081 F41.1 [id number] MD Snehal Ramirez[address] [place] [address] 11/02/2024 14:51:29 11/02/2024 15:34:44 Acute sinusitis 84152515 J01.90 Expiratory wheezing 9763 007 R06.2 [id number] GREGORY Wen [address] [place] [address] 11/22/2024 13:34:31 11/22/2024 14:35:19 Major depressive disorder 598698136 F32.9 [id number] GREGORY Wen [address] [place] [address] 03/16/2025 08:47:23 03/16/2025 09:18:13 Body mass index 30+ - obesity 264072719 E66.9 1916023 Obesity 553314713 E66.9 Generalize d anxiety disorder 79725488 F41.1 Major depr essive disorder 349267470 F32.9 Health Concerns Section Related Observation LastModified by Organization Detai ls LastModified Time None Recorded Concern Status LastModified by Organization Details LastModified Time None Recorded Advance Directives Directive N: Payers Insurance Date Sequence Insurance Name Policy Number Policy Ruiz Covered Member ID Ruiz Member ID Guarantor Name 03/13/2025 [place] [employer] [place]MEDICAID[place] Rebecca Gerber [id number] Joana Gerber 03/25/2025 [facility] Rebeccapaula Gerber [id number] Joana Gerber Notes Date Note Type Note Provider Name and Address Organization Details Recorded Time 09/01/2024 text/html ROS as noted in the [facility] Patient is here for sore throat, coughing, stuffy nose and cough, fever x 2 nights Shiv Spann MD [address], [place], [address], [facility] - [facility] 09/01/2024 13:15:36 10/21/2024 text/html ROS as noted in the [facility] reports to the office for symptoms of anxiety/depression . She reports she has struggled with this for several years and has managed symptoms without medication but anxiety seems to be worsening recently. She declines counseling referral at this time. She denies SI and/or thoughts of harming self/others. She would like to begin medication management. Romina Saez APRN [address], [place], [address], [facility] - [facility] 10/21/2024 20:25:24 11/02/2024 text/html ROS as noted in the HPI Pt here today for sore throat - cough and congestion. Shiv Spann MD [address], [place], [address], [facility] - [facility] 11/02/2024 15:19:28 11/22/2024 text/html ROS as noted in the [facility] reports to the office to follow up on anxiety/depression . She reports symptoms have improved since starting lexapro. She would like to increase dose at this time as she feels symptoms could still be improved. Declines counseling referral today. Denies SI and/or thoughts of harming self/others. No concerns. Romina Saez APRN [address], [place], [address], [facility] - [facility] 11/22/2024 19:33:13 03/16/2025 text/html Joana reports to the office to follow up on anxiety/depression . She would like to continue escitalopram at current dose. She reports medication is alleviating symptoms and no changes are needed at this time. Denies SI and/or thoughts of harming self/others. Romina Saez APRN [address], [place], [address], [place] - [facility] 03/16/2025 23:19:20 OBGyn Episode Ob Episode Information Episode Created Date Number of Fetuses Patient Bloodtype Patient rh Status Prepregnancy Weight lbs Domestic Partner Domestic Partner Phone Father Name Career Orientation Teacher Status 01/29/20 23 1 O Negative 178 Marcaxelo , 19 Roshan io, 19 [employer] CLOSED Fetus Data First Name Last Name Admitted to NICU Weight (g) Sex Living Outcome Pediatric Complications Fetus ID Race Codes Race Delivery Type 70028 Problems Problem Notes [employer]- [employer]- Jenny --> states lost job in March, unemployed at 17 weeks, stays with parents, FOB involvedbreast/circ/[phone]; early bleeding; 8.7 mm gestational sac with yolk sac no CRL yet. Repeat 2 weeks 01/28/23 [place] 7w3d, by LMP 7w1d, CRL 1.22cm, FHR 1486-9; [place] anatomy ultrasound (had been scheduled at 17 weeks unsure reason), normal but limited anatomy, male, anterior placenta. Cervical length 3.7 3.9 cm. Repeat at 25 weeks for IVS/four-chamber/3 VV, 3 VT/feet/LLS 8 2 3: Follow-up anatomy completes cardiac views and feet as above. No biometry anterior placenta, vertex. No scheduled follow-up/lls Problem Name Start Date End Date Resolution Snomed Code Not e First trimester bleeding [id number] 3 1 3 ER visit hCG 5400., Single bleeding episode, 01/14 office visit follow-up, bleeding had stopped, 5 wk IUP US:did NOT has type RH check NOR RHOGAM for this episode.(confirmed per [facility] Blood bank) Antibody screen 3 2 8 negative (probably did not get RhoGAM) [ [ x] We will have Vish check with blood bank regarding documentation or RhoGAM.04/12/lls--N OT GIVEN[ } Need to confirm negative antibody screen at 28 weeks and educate patient regarding need for RhoGAM with any future bleeding Body mass index 25-29 - overweight 305001033 BMI: 27.9 starting wgt: 178recommended wgt gain: 15-25 Contraception care management 061328173 ocp screening 620442427 [x]Mat21-4/ NEGATIVE; Male[-]AFP-decline d 04/11[-]CF-declined 04/11 Active immunization 72824210 [x]Covid-completed [ ]Tdap-desires[x]Fl u-declined History of recreational drug use 01/28/2023 209512903 quit w/+ home u pt Blood group O Rh(D) negative 419029069 [first TM bleed 01/14 without Rhogam)(Neg AB screen 01/28)[ ]AB screen 28wks[ ]Rhogam 28wks Recreational drug user 548376955 UDS+ THC at obh x[ ] Rpt 28wk Aaron Calculation Initial Aaron Date Initial Exam Date Initial Exam Provider Initial Ultrasound Date Last Menstrual Period Date Ultra Sound Weeks Gestation 09/15/2023 01/28/2023 01/28/2023 12/09/2022 7 Eighteen To Twenty Week Aaron Update Ultra Sound Date Fundal Height At Umbil Quickening Date Ultra Sound Latest Weeks Gestation Final Aaron Confirmed By Final Aaron Confirmed Date Final Aaron Date Ultra Sound Latest Days Gestation 0 cdicken 03/19/2023 09/15/20 23 0 Pre-hemal Flowsheet Flowsheet Date 01/28/2023 Gleason Score Blood Edema Fundus Height Fundus Units Glucose Ketones Leukocytes Nitrite Labor Signs Protein Cervic Dilation Cervic Effacement Cervic Station neg none none negative none Negative none neg Type Weight in lbs Pre/Post Dialysis Refused Weight 178.979000272525 BP Diastolic BP Location Tested BP Systolic BP Type 72 108 sitting Fetus Heart Rate Present Fetus Movement A No Comments Joana is here for ob hx appt. Unplanned . She is sure of LMP. Desires genetic screening. Denies any genetic problems in either side of family. Reviewed u/s today, consistent w/LMP date. Admits to using THC, stopped w/+ home upt. Discussed UDS and social service consult, she agrees to it. Has GERD and IBS. She is taking PNV. Occasional nausea but manageable. No vb or unusual dc. Discussed course of care. No q/c today. RTC for mat21 if able-paper/info given to call for approval.AD Flowsheet Date 02/20/2023 Gleason Score Blood Edema Fundus Height Fundus Units Glucose Ketones Leukocytes Nitrite Labor Signs Protein Cervic Dilation Cervic Effacement Cervic Station Type Weight in lbs Pre/Post Dialysis Refused BP Diastolic BP Location Tested BP Systolic BP Type Fetus Heart Rate Present Fetus Movement Comments Flowsheet Date 02/20/2023 Gleason Score Blood Edema Fundus Height Fundus Units Glucose Ketones Leukocytes Nitrite Labor Signs Protein Cervic Dilation Cervic Effacement Cervic Station neg none 11 wks none negative none Negative none neg Type Weight in lbs Pre/Post Dialysis Refused Weight 180.468496281688 BP Diastolic BP Location Tested BP Systolic BP Type 60 114 sitting Fetus Heart Rate Present A Present Fetus Movement Comments NO vb, no lof, neg leuk, ne g nits, no complaints, OBPE today.//BWAgree, completed OBPE, Mat 21 sent today and patient made arrangements with MA for who the results go to. Questions answered with patient and her mother. Miscarriage precautions given. RTC in 4 weeks, sooner if needed. SMB Flowsheet Date 03/21/2023 Gleason Score Blood Edema Fundus Height Fundus Units Glucose Ketones Leukocytes Nitrite Labor Signs Protein Cervic Dilation Cervic Effacement Cervic Station neg none 14 wks none negative none Negative none neg Type Weight in lbs Pre/Post Dialysis Refused With clothes [id number] BP Diastolic BP Location Tested BP Systolic BP Type 72 110 sitting Fetus Heart Rate Present A Present Fetus Movement Comments Pt states no VB, no LOF, no Cramping. /EV Doing well, occasional constipation. Taking PNV. Denies heartburn. Denies nausea or vomiting. F/U 3 weeks/SMO Flowsheet Date 04/11/2023 Gleason Score Blood Edema Fundus Height Fundus Units Glucose Ketones Leukocytes Nitrite Labor Signs Protein Cervic Dilation Cervic Effacement Cervic Station neg none 18 wks none negative none Negative neg Type Weight in lbs Pre/Post Dialysis Refused Weight 193.21071924659 BP Diastolic BP Location Tested BP Systolic BP Type 72 116 Fetus Heart Rate Present A Present Fetus Movement Comments US, declined CF and AFP. c/o of vaginal irritation.//AA. No flutters yet. No bleeding or cramping. Presents for GA anatomy ultrasound unclear why this was scheduled at 17 weeks rather than 20 but in any event AGA findings, normal but limited anatomy as above. Reassuring cervical length and placental location. Will need follow-up advised at least 25 weeks. Vulvar irritation both in groin and labia., Thinks her pH may be off also with vaginal odor. Exam with no focal changes. Swabs sent. Unless BV noted on swabs will offer empiric yeast treatment on return of results. Reviewed limitations of ultrasound. Discussed additional screening of AFP and CF which she declines but had desired daily aneuploidy screening done in February and negative.. RTO 4 weeks. Also make 8-week follow-up ultrasound appointment/llsChart review following visit shows that she had had self-limited bleeding at 5 weeks, had ER visit and follow-up here with SMO following day 3 4 with early ultrasound reassuring and apparently unrecognized Rh- at that time, no testing for Rh documented until and antibody screen then was negative, unlikely she got RhoGAM but we will have Vish confirm with hospital blood bank. We will need to be sure to confirm no isoimmunization as of 28-week antibody screen and educate patient regarding need for early RhoGAM if any additional bleeding with current or subsequent pregnancies/lls fu:Late entry 04-14-23: Confirmed per Vish Per [facility] blood bank -no type Rh or RhoGAM administered there/lls Flowsheet Date 05/12/2023 Gleason Score Blood Edema Fundus Height Fundus Units Glucose Ketones Leukocytes Nitrite Labor Signs Protein Cervic Dilation Cervic Effacement Cervic Station neg none 22 wks none negative none Negative none neg Type Weight in lbs Pre/Post Dialysis Refused With clothes 206.825896136814 BP Diastolic BP Location Tested BP Systolic BP Type 62 112 sitting Fetus Heart Rate Present A Present Fetus Movement A Yes Comments Pt states no VB, no LOF, no CTX. Pt states AFM. /EV Doing well. No complaints. Reports occasional indigestion, recommend TUMs. Taking PNV. F/U as scheduled for repeat US./SMO Flowsheet Date 06/10/2023 Gleason Score Blood Edema Fundus Height Fundus Units Glucose Ketones Leukocytes Nitrite Labor Signs Protein Cervic Dilation Cervic Effacement Cervic Station neg none 26 cm none negative trace Negative none neg Type Weight in lbs Pre/Post Dialysis Refused Weight [id number] BP Diastolic BP Location Tested BP Systolic BP Type 72 116 Fetus Heart Rate Present A Present Fetus Movement A Yes Comments US, doing well , feeling mov ements.//AA c/o pathcy prutritc rash bw breasts starting several days ago. first noted rash yesaterday. Lacy bashir pigmented rash along sternum and under both breast folds suggestive of well, Rx Lotrisone; US reassuring as above. completes anatomy scan. RTO 2 weeks GTT/CBC/antibody screen and RhoGAM/lls Flowsheet Date 06/25/2023 Gleason Score Blood Edema Fundus Height Fundus Units Glucose Ketones Leukocytes Nitrite Labor Signs Protein Cervic Dilation Cervic Effacement Cervic Station Type Weight in lbs Pre/Post Dialysis Refused BP Diastolic BP Location Tested BP Systolic BP Type Fetus Heart Rate Present Fetus Movement Comments Patient transferred care to [facility]//keisha Menstrual History Last Menstrual Date Menses Monthly On Bcp Conception Prior Menses Frequency Hcg Plus Date Menarche Onset Age 0212/09/2022 true false 28 3 11 Genetic Screening And Infection History Question Response Note Patient's Age Will Be 35 Years Or Older At Estim ated Date of Delivery false Thalassemia (Croatian, Pashto, Mediterranean, Or Background): MCV < 80 false Neural Tube Defect (Meningomyelocele, Spina Bifi da, Or Anencephaly) false Congenital Heart Defect false Down Syndrome false Severino-Sachs (eg, Jainism, Cajun, Uzbek-Monroe) f alse Nano Disease false Sickle Cell Disease Or Trait () false Hemophilia Or Other Blood Disorders false Muscular Dystrophy false Cystic Fibrosis false [place]'s Chorea false Mental Retardation/Autism false If Yes, Was Person Tested For Fragile X? false Other Inherited Genetic Or Chromosomal Disorder false Maternal Metabolic Disorder (eg, Type 1 Diabetes , PKU) false Patient Or Baby's Father Had A Child With Defects Not Listed Above false Recurrent Loss, Or A Stillbirth false Medications (including Suppl ements, Vitamins, Herbs, OTC Drugs), Illicit/Recreational Drugs, Alcohol false If Yes, Agent(s) And Strength/Dosage false Any Other Genetic History false Live With Someone With TB Or Exposed To TB false Patient Or Partner Has History Of Genital Herpes false Rash Or Viral Illness Since Last Menstrual Perio d false History Of STD, Gonorrhea, Chlamydia, HPV, Syphi lis false Other Infection History false History of HIV false History of Hepatitis false Prior GBS-infected child false Recent Travel Outside of Country false Plans and Education First Trimester Discussed Date Discussion Item Discussion Note Discuss ed By 01/28/2023 Desire for unplanned 01/28/2023 Alcohol no e201/28/2023 Illicit/recreational drugs no a [facility]24 01/28/2023 Nutrition discussed 01/28/2023 Weight gain counseling discusse 01/28/2023 Intimate Partner Violence no ad e201/28/2023 Unstable Housing no 01/28/2023 Use of any medicatio ns (including supplements, vitamins, herbs, or OTC drugs) discussed 01/28/2023 Avoidance of saunas or hot tubs dicussed 01/28/2023 Indications for ultrasonography discussed 01/28/2023 Comminucation Barriers no 01/28/2023 Anticipated course of care discu ssed 01/28/2023 Toxoplasmosis precautions (cats/raw meat) discussed 01/28/2023 Sexual activity discussed 01/28/2023 Exercise discussed 01/28/2023 Tobacco/smoking cess ation counseling (ask, advise, assess, assist, and arrange) no 01/28/2023 Barriers to Care no 01/28/2023 Environmental/work hazards discussed a 01/28/2023 Depression/Anxiety ( should be performed at least once during period) yes 01/28/2023 WIC/Hands Referral referral sent 01/28/2023 Nutrition counseling ; special diet; dietary precautions (mercury, listeriosis) discussed 01/28/2023 Dental Care / Refer to Dentist discussed 01/28/2023 Seat belt use discussed 01/28/2023 Childbirth classes/hospital facilities di scussed 01/28/2023 discussed 01/28/2023 Screening for aneuploidy discussed Second Trimester Discussed Date Discussion Item Discussion Note Discuss ed By Third Trimester Discussed Date Discussion Item Discussion Note Discuss ed By Delivery Information Delivery Date Delivery Type Labor Anesthesia Weeks Gestation Incision Type Labor Labor Length Hrs Delivered By Post Complications Tubal Sterilization Discharge Date Comments Discharge Information Feeding Method Contraceptive Method Maternal HG B and HCT Levels
--- OUTSIDE RECORDS SUMMARY | 2025-08-18 08:53 | XMS_ITS | Clinical Summary ---
[facility] Address [address] [place] [address] Care Team Providers Care Investment Advisor Name Role Phone Provider, No Known Primary Care Provider Unavail able Allergies No known active allergies Medications Vit-Fe Fumarate-FA ( vitamin 28-0.8) 28-0.8 MG tablet tablet Take 1 tablet by mouth Daily. 07/01/2023 Active Active Problems Problem Noted Date Diagnosed Date Suspected condition not found 07/03/2023 Social History Tobacco Use Types Packs/Day Years Used Date Smoking Tobacco: Never Smokeless Tobacco: Never Alcohol Use Standard Drinks/Week Comments Never 0 (1 standard drink = 0.6 oz pur e alcohol) Abuse Screen Answer Date Recorded Unsafe at Home or Work/School Not on file Feels Threatened by Someone? Not on file Does Anyone Keep You from Co ntacting Others or Doint Things Outside the Home? Not on file 08/15/2023 Physical Sign of Abuse Present Not on file 1 Housing Stability Answer Date Recorded Current Living Arrangements Not on file 08/03 Potentially Unsafe Housing Conditions Not on gabrielle e 08/15/2023 Family and Community Support Answer Sam e Recorded Help with Day-to-Day Activities Not on file 08/15/2023 Lonely or Isolated Not on file 08/15/2023 Employment Answer Date Recorded Do you want help finding or keeping work or a karol b? Not on file 08/15/2023 Disabilities Answer Date Recorded Concentrating, Remembering, or Making Decisions Difficulty Not on file 08/15/2023 Doing Errands Independently Difficulty Not on fi le 08/15/2023 Education Answer Date Recorded Help with school or training? Not on file Preferred Language Not on file 08/15/2023 Comments No Sex and Gender Information Value Date Recorded Sex Assigned at Not on file Legal Sex Female 3:36 PM EDT Gender Identity Not on file Sexual Orientation Not on file Last Filed Vital Signs Vital Sign Reading Time Taken Comments Blood Pressure 109/52 07/03/2023 1:07 PM EDT Pulse - - Temperature - - Respiratory Rate - - Oxygen Saturation - - Inhaled Oxygen Concentration - - Weight 105 kg (230 lb 6.4 oz) 07/03/2023 1:07 PM EDT Height 170.2 cm (5' 7 ) 07/03/2023 1:09 PM EDT Body Mass Index 36.09 07/03/2023 1:07 PM EDT Plan of Treatment Health Maintenance Due Date Last Done Comments Annual Gynecologic Pelvic and Breast Exam 2004 ANNUAL PHYSICAL 06/24/2023 HEPATITIS C SCREENING 06/24/2023 INFLUENZA VACCINE 06/03/2025 08/11/2020, , 08/08/2016, Additional history exists TDAP/TD VACCINES (2 - Td or Tdap) 07/04/2025 07/04/2015 HPV VACCINES Completed 01/08/2016, 1104/2015, 09/08/2015, Additional history exists Pneumococcal Vaccine 0-49 Aged Out 08/11/2017 No longer eligible based on patient's age to complete this topic MENINGOCOCCAL VACCINE Completed 07/19/2020 , 07/04/2015, 07/04/2015 MENINGOCOCCAL B VACCINE Completed 08/23/2020, 07/19 Insurance [employer] [facility] Care Teams Investment Advisor Relationship Specialty Start Date End Date Provider, [place] [address] PCP - General 06/24/23
--- OUTSIDE RECORDS SUMMARY | 2025-08-18 08:53 | XMS_ITS | Clinical Summary ---
Author Organization [facility] Address [address] [place] [id number] Care Team Providers Care Training And Development Specialist Name Role Phone Terell Lau MD Primary Care Provider + Source Comments [facility] fully rolled out with thefollowing exceptions:General Clinical Research [facility] Allergies Active Allergy Reactions Criticality Noted Date Comments cats, dogs, mice, dust, blue grass, pollens, trees [Other] Sneezing 01/26/2015 Medications VENTOLIN HFA 108 (90 BASE) MCG/ACT inhaler 12/27/2014 Act trudy azelastine (ASTELIN) 137 MCG/SPRAY nasal spray 12/28/2014 Active QVAR 40 MCG/ACT inhaler 11/04/2014 Active cetirizine (ZyrTEC) 10 MG tablet 01/17/2015 Active fluticasone propionate (FLONASE) 50 MCG/ACT nasal spray 12/27/2014 Active montelukast (SINGULAIR) 5 MG chewable tablet 01/13/2015 Act trudy albuterol (PROVENTIL) (2.5 MG/3ML) 0.083% nebulizer solution 5 mg every 2 hours as needed. Active ALBUTEROL SULFATE HFA 108 (90 BASE) MCG/ACT IN AERS 2 Puffs. Acti ve predniSONE (DELTASONE) 20 MG tablet . 05/18/2015 Active cefdinir (OMNICEF) 300 MG capsule . 05/11/2015 Active QVAR 80 MCG/ACT inhaler . 05/01/2015 Active calcium-vitamin D-vitamin K (VIACTIV) 500-500-40 MG-UNT-MCG soft chew Chew 500 mg 1 time a day. Active Active Problems Problem Noted Date Diagnosed Date Acquired acanthosis nigricans 05/25/2015 Obesity, unspecified 05/25/2015 Family History Medical History Relation Name Comments HTN Father Other Father amxiety disorde r HTN Maternal Grandfather HTN Maternal Grandmother Heart Attack Under 55 (sudde n cardiac ) Maternal Grandmother HTN Mother Other Mother depression; art hritiis HTN Paternal Grandfather Diabetes Type 1 Paternal Grandmother HTN Paternal Grandmother Heart Attack Under 55 (sudde n cardiac ) Paternal Grandmother Relation Name Status Comments Father Maternal Grandfather Maternal Grandmother Mother Paternal Grandfather Paternal Grandmother Social History Tobacco Use Types Packs/Day Years Used Date Smoking Tobacco: Never Smokeless Tobacco: Never Alcohol Use Standard Drinks/Week Comments No 0 (1 standard drink = 0.6 oz pur e alcohol) Comments Unknown Sex and Gender Information Value Date Recorded Sex Assigned at Not on file Legal Sex Female 11:30 AM EST Gender Identity Not on file Sexual Orientation Not on file Last Filed Vital Signs Vital Sign Reading Time Taken Comments Blood Pressure 122/64 05/25/2015 9:28 AM EDT Pulse 100 01/26/2015 12:41 PM EDT Temperature - - Respiratory Rate 22 01/26/2015 12:41 PM EDT Oxygen Saturation - - Inhaled Oxygen Concentration - - Weight 78 kg (171 lb 15.3 oz) 05/25/2015 9:28 AM EDT Height 156.6 cm (5' 1.67 ) 05/25/2015 9:28 AM ED T Body Mass Index 31.79 05/25/2015 9:28 AM EDT Plan of Treatment Health Maintenance Due Date Last Done Comments MMR IMMUNIZATION (1 of 1 - S tandard series) 2005 DTAP/Tdap/Td IMMUNIZATION (1 - Tdap) 2011 VARICELLA IMMUNIZATION (1 of 2 - 13+ 2-dose series) 2017 HPV IMMUNIZATION (1 - 3-dose series) 2019 MENINGOCOCCAL B VACCINE (1 o f 2 - Standard) 2020 HEPATITIS B IMMUNIZATION (1 of 3 - 19+ 3-dose series) 2023 AMB SEASONAL FLU VACCINE (#1) 07/04/2025 COVID-19 Vaccine (1 - 2023-2 5 season) 2025 HIB IMMUNIZATION Aged Out No longer e ligible based on patient's age to complete this topic IPV IMMUNIZATION Aged Out No longer e ligible based on patient's age to complete this topic MCV4 IMMUNIZATION Aged Out No longer eligible based on patient's age to complete this topic PNEUMOCOCCAL IMMUNIZATION Aged Out No longer eligible based on patient's age to complete this topic Respiratory Syncytial Virus (RSV) <20mo Aged Out No longer eligible b ased on patient's age to complete this topic Insurance [facility] Medicaid Address: [place] [id number] [place] [id number] [facility] Care Teams Training And Development Specialist Relationship Specialty Start Date End Date Terell Lau MD [address] [place] [address] [address] [place] [address] PCP - General External Pediatrics 12/22/14
== END 2025-08-16 23:59 ==
LOC: LAB.DROPOF 08-18 08:44
PROVIDERS: PCP Obstetrics & Gynecology; Visit Provider Obstetrics & Gynecology
DX: N39.0 Urinary tract infection, site not specified (principal)
CPT/HCPCS: 87086